=== PATIENT | male | born 1960 | race Caucasian/White ===

== ENCOUNTER 2020-05-12 18:45 | Emergency (ER) | payer BC, SELFPAY ==
[2020-05-12 18:46] VITALS: BP 139/84; PULSE 97; RESP 18; TEMP 36.8; O2SAT 99; BMI 18.8
--- NOTE | 2020-05-12 18:56 | ECG_ITS ---
APPROVED REPORT Exam: Resting ECG HR:101 bpm ECG Measurements Heart Rate 101 AXES PA 132 P 83 QRSd 80 QRS 33 QT 334 T 78 QTc 433 Conclusion Sinus tachycardia Otherwise normal ECG Electronically signed by : Rk Cavazos, 05/14/2020 19:59:23
--- NOTE | 2020-05-12 19:00 | XR_ITS ---
PROCEDURE: XR CHEST PORTABLE CLINICAL HISTORY: cough Cough COMPARISON: CR CXR CHEST(2 VIEWS-NOT PORTABLE) from 02/21/2015 FINDINGS: The cardiomediastinal silhouette and pulmonary vascularity are within normal limits. Nodular density is present in the left midlung laterally and could be due to nipple shadow. The remaining lungs are clear. No acute bony abnormalities. IMPRESSION: Nodular opacity left midlung laterally possibly due to nipple shadow and could be confirmed with follow-up with nipple otherwise negative, no acute finding. Dictated by: Al Martinez MD 05/13/2020 05:59 Al Martinez MD in [place] 05/13/2020 05:59
--- NOTE | 2020-05-12 19:07 | HMH.EDSYNC ---
ED Disposition Clinical Impression: Vasovagal syncope Disposition: Home, Self-Care Condition on Discharge: Good Instructions: DI for Syncope in Adults (Fainting) Referrals: Hans Abraham MD [Primary Care Provider] - - Critical Care Critical Care Time: No Attestation: On 05/12/20, the high probability of a clinically significant, sudden or life threatening deterioration of the following system(s) required my full and direct attention, intervention and personal management. The time I documented below is in addition to time spent performing reported procedures but includes the following listed in this critical care notation. Medical Decision Making - Medical Records Medical records reviewed: Yes: I reviewed the patient's medical records. - Jaya Inquiry Pt receiving controlled substance: No Vital Signs: 05/12/20 18:46 Temperature 98.3 F Temperature Source Oral Pulse Rate [Left Radial] 97 H Respiratory Rate 18 Blood Pressure [Right Arm] 139/84 Blood Pressure Mean [Right Arm] 102 Blood Pressure Source [Right Arm] Automatic Cuff Blood Pressure Position [Right Arm] Sitting 02 Sat by Pulse Oximetry 99 Oxygen Delivery Method Room Air - Lab Data Lab Results 05/12/20 18:58: WBC 12.1 H, RBC 5.17, Hgb 15.9, Hct 46.5, MCV 90.0, MCH 30.7, MCHC 34.1, RDW 13.4, Plt Count 263, MPV 8.2, Neut % (Auto) 85.1 H, Lymph % (Auto) 11.1, Meriwether % (Auto) 3.2, Eos % (Auto) 0.3, Baso % (Auto) 0.3, Neut # (Auto) 10.3 H, Lymph # (Auto) 1.3, Meriwether # (Auto) 0.4, Eos # (Auto) 0.0, Baso # (Auto) 0.0 05/12/20 18:58: Sodium 141, Potassium 3.4 L, Chloride 100, Carbon Dioxide 30, Anion Gap 14.4, BUN 14, Creatinine 0.90, Estimated Creat Clear 70, Estimated GFR 87, Est GFR ( Amer) 105, Glucose 123 H, Calcium 9.6, Total Bilirubin 1.2, AST 32, ALT 22, Alkaline Phosphatase 127 H, Troponin I < 0.01, Total Protein 9.3 H, Albumin 4.9, Globulin 4.4 H, Albumin/Globulin Ratio 1.1, TSH 3.01 Result diagrams: 05/12/20 18:58 05/12/20 18:58 Orders (Tests/Meds): ED MEDICATIONS Generic Name Dose Route Start Last Admin Trade Name Freq PRN Reason Stop Dose Admin Sodium Chloride 1,000 mls @ 999 mls/hr 05/12/20 19:00 05/12/20 19:09 Sod Chlor 0.9% 1000ml Bag IV 05/12/20 20:00 999 mls/hr .Q1H1M ERICKSON Administration Discontinued Medications Generic Name Dose Route Start Last Admin Trade Name Freq PRN Reason Stop Dose Admin Potassium Chloride 20 meq 05/12/20 19:35 05/12/20 19:51 Potassium Chloride 20meq Tab PO 05/12/20 19:36 20 meq ONCE ONE Administration ORDERS Category Date Time Status XR chest portable Stat Exams 05/12/20 19:00 Taken Complete Blood Count Auto Diff Stat Lab 05/12/20 18:58 Results Troponin I Q3H Lab 05/12/20 22:00 Ordered Troponin I Q3H Lab 05/13/20 01:00 Ordered - ECG Data Tracing #1 tachycardic rate of 101 bpm. Normal WI interval of 132 ms. Normal QTC. Sinus tachycardia with no specific ST changes. ECG initial impression date: 05/12/20 ECG initial impression time: 18:57 - Reevaluation(s) Time: 20:01 Reevaluation #1: On reevaluation patient is feeling better. Hemodynamically stable. Repeat neurologic exam is normal. Negative troponin. Patient is to follow-up with PCP in 48 hours. Given strict return precautions. Verbalized understanding. Medical Decision Narrative: Is a 59-year-old male presented to the emergency department with a syncopal episode. The patient has normal neurologic exam at this time. There is no evidence of seizure. Work-up will be initiated. Syncope HPI - General Chief Complaint: Syncope Stated Complaint: DIZZY, PASS OUT Time Seen by Provider: 05/12/20 18:50 Mode of Arrival: Wheelchair Limitations: No Limitations Description of Symptoms (Recalled from ER Triage Doc. by RN): Per brother pt was standing in the doorway when he passed out for about 30 secs. Pt states that he was feeling lightheaded before he passed out. - History of Prese
[2020-05-12 19:09] LABS: Basophils % 0.3 % (0.1-2.0); Eosinophils % 0.3 % (0.1-12.0); Hematocrit 46.5 % (42.0-52.0); Hemoglobin 15.9 g/dL (14.1-18.0); Lymphocytes # 1.3 K/mm3 (0.7-4.5); Lymphocytes % 11.1 % (10-50); Mean Corpuscular HGB Conc 34.1 g/dL (31.8-35.4); Mean Corpuscular Hemoglobin 30.7 pg (27.0-31.2); Mean Platelet Volume 8.2 fl (7.4-10.4); Monocytes # 0.4 K/mm3 (0.1-1.0); Monocytes % 3.2 % (1.7-9.3); Neutrophils # 10.3 K/mm3 (1.8-7.8); Neutrophils % 85.1 % (37.0-80.0); Platelet Count 263 K/mm3 (142-424); Red Blood Count 5.17 M/mm3 (4.60-6.20); Red Cell Distribution Width 13.4 % (11.5-17.5); White Blood Count 12.1 K/mm3 (4.8-10.8)
[2020-05-12 19:12] LABS: MANUAL DIFFERENTIAL MANUAL DIFFERENTIAL (MANUAL DIFF)
[2020-05-12 19:16] LABS: Chloride 100 mmol/L (98-107); Potassium 3.4 mmoL/L (3.5-5.1); Sodium 141 mmol/L (136-145)
--- NOTE | 2020-05-12 19:16 | PC.NURSE ---
received report from presley ramirez. discussed possibility of performing a head cta/ct without with md. no new orders at this time.
[2020-05-12 19:19] LABS: Alanine Aminotransferase 22 U/L (12-78); Albumin Level 4.9 g/dl (3.5-5.0); Albumin/Globulin Ratio 1.1 (1.1-1.8); Alkaline Phosphatase 127 U/L (38-126); Anion Gap 14.4 mEq/L (5-15); Aspartate Amino Transferase 32 U/L (17-59); Bilirubin,Total 1.2 mg/dl (0.2-1.3); Blood Urea Nitrogen 14 mg/dl (9-20); Carbon Dioxide 30 mmol/L (22.0-30.0); Creatinine Clearance Estimated 70 mL/min (50-200); Estimated Glomerular Filt Rate 87 ml/min (>60); GFR (African American) 105 ML/MIN (>60); Globulin 4.4 g/dL (1.3-3.2); Total Protein,Serum 9.3 g/dl (6.3-8.2)
[2020-05-12 19:20] LABS: Calcium 9.6 mg/dl (8.4-10.2); Glucose 123 mg/dl (74-100)
[2020-05-12 19:44] LABS: Troponin I < 0.01 ng/ml (0.00-0.034)
[2020-05-12 19:52] LABS: Thyroid Stimulating Hormone 3.01 uIU/mL (0.465-4.68)
[2020-05-12 20:05] VITALS: BP 147/98; PULSE 82; RESP 19; TEMP 36.1; O2SAT 98
[2020-05-12 20:09] LABS: Lymphocytes % 10 % (10-50); Monocytes % 6 % (2-9); Neutrophils % 84 % (42-76); Platelet Estimate Normal; RBC Morphology Normal; Total Cells Counted 100
== END 2020-05-12 20:36 | disposition home or self-care (01) ==
PROVIDERS: Emergency Provider Emergency Medicine; PCP Emergency Medicine
DX: R55 Syncope and collapse (principal); K21.9 Gastro-esophageal reflux disease without esophagitis; F17.290 Nicotine dependence, other tobacco product, uncomplicated; Z88.0 Allergy status to penicillin; Z88.5 Allergy status to narcotic agent
CPT/HCPCS: 71045; 80053; 84443; 84484; 85007; 85025; 93005; 99282

== ENCOUNTER → 2020-06-07 06:43 | Outpatient (CLI) | payer BC, SELFPAY ==
--- NOTE | 2020-06-07 | CA_ITS ---
APPROVED REPORT Exam: Exercise Treadmill Technologist: Mariela Riggins Ht: 5 ft 7 in Wt: 125 lbs BSA: 1.66 m2 HR: 70 bpm BP: 141/93 mmHg Indications: Chest pain Stress Test Details Test: Esequiel HR Resting HR: 112 bpm Max Heart Rate (APMHR): 163 bpm Max HR Achieved: 173 bpm Target HR (85% APMHR): 138 bpm % of APMHR: 106 Recovery HR: 104 bpm BP Resting BP: 141/93 mmHg Max BP: 170/94 mmHg Recovery BP: 132.0/90.0 mmHg ECG Resting ECG: Normal sinus rhythm Clinical Exercise duration: 09:00 min Highest Stage Achieved: Exercise capacity: 10.1 METs Stress ECG Conclusion Patient exercised 9:00 on Esequiel Protocol. Test stopped due to shortness of air, fatigue. Symptoms: No chest pain. Arrhythmias/Ectopy: None ST-T Changes: Normal ST response to exercise. Conclusion: Normal GXT. Myoview images reported separately. Test Summary Stage 3 01:00 14.0 3.4 142 . . . . REST . . . . . . . Standing REST 02:40 0.0 0.0 112 . 141/ 93 . . Stage 1 01:00 10.0 1.7 136 . . . . Stage 1 02:00 10.0 1.7 134 . . . . Stage 1 03:00 10.0 1.7 140 . 152/ 90 . . Stage 2 01:00 12.0 2.5 152 . . . . Stage 2 02:00 12.0 2.5 155 . . . . Stage 2 03:00 12.0 2.5 155 . 170/ 94 . . Stage 3 01:00 14.0 3.4 142 . . . . Stage 3 . . . . . . . Myoview Injected Stage 3 02:00 14.0 3.4 169 . . . . Stage 3 03:00 14.0 3.4 172 . . . Stop exercise at 09:00 RECOVERY 01:00 0.0 0.0 152 . . . . RECOVERY 02:00 0.0 0.0 139 . 156/ 96 . . RECOVERY 03:00 0.0 0.0 128 . 155/ 97 . . RECOVERY 04:00 0.0 0.0 125 . 138/ 93 . . RECOVERY 05:00 0.0 0.0 123 . 132/ 90 . . RECOVERY 06:00 0.0 0.0 129 . 132/ 90 . . RECOVERY 07:00 0.0 0.0 126 . 132/ 90 . . RECOVERY 07:50 0.0 0.0 137 . 132/ 90 . . Electronically signed by : Marcelino Hawk, 06/07/2020 18:32:19
--- NOTE | 2020-06-07 06:44 | CA_ITS ---
APPROVED REPORT Education Courses Sales Representative: Corinna Lane RVT Laterality: Bilateral Study Quality: Excellent Indications: bruit,syncope Doppler Spectral Velocity Analysis ECA (R) 82.30/16.00 cm/s ECA (L) 98.40/13.90 cm/s dICA (R) 81.30/26.70 cm/s dICA (L) 70.60/26.70 cm/s Ruy (R) 74.90/27.80 cm/s Ruy (L) 79.10/29.90 cm/s pICA (R) 63.10/18.20 cm/s pICA (L) 49.20/21.40 cm/s dCCA (R) 78.10/19.20 cm/s dCCA (L) 79.10/20.30 cm/s pCCA (R) 89.80/20.30 cm/s pCCA (L) 105.90/22.50 cm/s Vert (R) 39.60/10.70 cm/s Vert (L) 31.40/12.00 cm/s ICA/CCA 1.04 ICA/CCA 1.00 Findings Study suggests no evidence of stenosis of the bilateral internal cartoid arteries. Antegrade flow seen bilateral vertebral arteries. Conclusion Study suggests no evidence of stenosis of the bilateral internal cartoid arteries. Antegrade flow seen bilateral vertebral arteries. Electronically signed by : Jack Mace MD 06/08/2020 09:00:48
--- NOTE | 2020-06-07 06:44 | NM_ITS ---
APPROVED REPORT Exam: Nuclear Stress Test Indication: C.P., SYNCOPE Patient Location: Outpatient Stress Tech: Sri Treadwell [place] Tech:Sudha Godniez, ARRT, RT (R)(N) Ht: 5 ft 7 in Wt: 125 lbs HR: 70 bpm BP: 141/93 mmHg BSA: 1.66 m2 BMI: 19.5 History: C.P., SYNCOPE Procedure: Patient exercised on Esequiel protocol 9:00 minutes and sec, resting heart rate 70 bpm, resting blood pressure 141/93 mmHg, with exercise maximum heart rate achived was 173 bpm which is 106 % of the maximum predicted heart rate and blood pressure was 170/94 mmHg. Patient denied any complaint of chest pain. Patient has Good exercise capacity, achieved 10.1 METs of workload on treadmill, the blood pressure response to exercise was Adequate. Electrocardiogram Resting electrocardiogram showed sinus tachycardia, with exercise there is less than 1.[address] segment depression noted from the baseline EKG. The EKG portion of the exercise Myoview is negative for ischemia. Cardiac Stress and Resting SPECT Images: Cardiac Stress and Resting SPECT images were obtained using technetium 99m Myoview 32.0 mCi stress and 10.47 mCi at rest. Gated SPECT for analysis of segmental wall motion and calculation of the ejection fraction also done. Cardiac stress and resting SPECT images show uniform myocardial activity without segmental perfusion abnormality, computer derived ejection fraction is 48% with no regional wall motion abnormality, right ventricle is normal size and contractility. Conclusion: 1. The EKG portion of the exercise Myoview is negative for ischemia, patient has good exercise capacity achieved 10.1 mets of workload on treadmill, the blood pressure response to exercise was adequate, there was no exercise-induced chest discomfort. 2. No scintigraphic evidence of reversible ischemia seen at this level of exercise, computer derived ejection fraction is 48% with no regional wall motion abnormality, right ventricle is normal size and contractility. 3. Normal exercise Myoview study. Electronically signed by : Marcelino Hawk, 06/07/2020 18:39:39
--- NOTE | 2020-06-07 08:57 | HMH.ITSHM ---
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 []AC[employer] REFL[employer] MED
== END ==
PROVIDERS: PCP Emergency Medicine; Visit Provider Emergency Medicine
DX: R07.9 Chest pain, unspecified (principal); R09.89 Other specified symptoms and signs involving the circulatory and respiratory systems
CPT/HCPCS: 78452; 93017; 93880; A9502

== ENCOUNTER → 2021-03-21 08:58 | Outpatient (CLI) | payer BC, SELFPAY ==
--- NOTE | 2021-03-21 09:03 | XR_ITS ---
PROCEDURE: XR SHOULDER LT MIN 2V CLINICAL INDICATION: pain COMPARISON: No exams were available for comparison FINDINGS: No fracture or dislocation. No lytic or blastic change. There is normal mineralization. The joint spaces are well-preserved. No significant degenerative/arthritic changes. No erosive changes evident. Other findings:None. IMPRESSION: No acute findings. Dictated by: Al Martinez MD 03/21/2021 18:16 Al Martinez MD in [place] 03/21/2021 18:16
== END ==
PROVIDERS: PCP Emergency Medicine; Visit Provider Family Medicine
DX: M25.512 Pain in left shoulder (principal)
CPT/HCPCS: 73030

== ENCOUNTER → 2021-05-16 07:32 | Outpatient (CLI) | payer MEDICARE, BC, SELFPAY ==
--- NOTE | 2021-05-16 07:32 | MR_ITS ---
PROCEDURE: MR CERVICAL SPINE WO CON CLINICAL INDICATION: radicular pain LUE COMPARISON: No exams were available for comparison TECHNIQUE: Standard multiplanar multiecho sequences are performed without contrast. 3-D MIP and myelographic images are also rendered and reviewed FINDINGS: There is normal alignment. There is prominent cisterna magna as a normal variant in the skull base posteriorly. There is straightening of the upper cervical lordosis. C2-C3: Unremarkable. C3-C4: There is uncovertebral hypertrophy on the right with disc osteophyte complex at the uncovertebral region causing right lateral recess narrowing and moderate right foraminal narrowing. There is narrowing of the canal at this level at 10 mm. No cord impingement. C4-C5: Bilateral uncovertebral hypertrophy with moderate bilateral foraminal narrowing with narrowing of the canal at 11 mm. No cord impingement. C5-C6: Degenerative disc disease with bulging disc with narrowing of the canal at 9 mm. There is moderate to severe right foraminal narrowing and mild to moderate left foraminal narrowing. The bulging disc does abut the anterior aspect of the cord without significant compression. There is moderate left lateral recess narrowing and mild right lateral recess narrowing.. There is canal stenosis at this level at 9 mm. C6-C7: Unremarkable. C7-T1: Unremarkable. No extruded herniated disc. IMPRESSION: Multilevel cervical spondylosis with lateral recess and foraminal narrowing and canal stenosis. Please see above for detailed description at each level. Straightening of the cervical lordosis which may be due to patient positioning or muscle spasm. No extruded herniated disc apparent. Dictated by: Al Martinez MD 05/17/2021 08:35 Al Martinez MD in [place] 05/17/2021 08:35
== END ==
PROVIDERS: PCP Family Medicine; Visit Provider Family Medicine
DX: M54.2 Cervicalgia (principal); M79.602 Pain in left arm; R20.0 Anesthesia of skin; R20.2 Paresthesia of skin
CPT/HCPCS: 72141; 76376

== ENCOUNTER 2023-10-06 18:00 | Outpatient (CLI) | payer MEDICARE, SELFPAY ==
[2023-10-06 18:34] LABS: Basophils % 0.5 % (0.1-2.0); Eosinophils # 0.1 K/mm3 (0.0-0.4); Eosinophils % 0.6 % (0.1-12.0); Hematocrit 42.2 % (42.0-52.0); Hemoglobin 14.4 g/dL (14.1-18.0); Lymphocytes # 1.3 K/mm3 (0.7-4.5); Lymphocytes % 14.7 % (10-50); Mean Corpuscular HGB Conc 34.1 g/dL (31.8-35.4); Mean Corpuscular Hemoglobin 31.4 pg (27.0-31.2); Mean Corpuscular Volume 92.1 fl (80-94); Mean Platelet Volume 9.3 fl (7.4-10.4); Monocytes # 0.3 K/mm3 (0.1-1.0); Monocytes % 3.7 % (1.7-9.3); Neutrophils # 7.1 K/mm3 (1.8-7.8); Neutrophils % 80.5 % (37.0-80.0); Platelet Count 249 K/mm3 (142-424); Red Blood Count 4.58 M/mm3 (4.60-6.20); Red Cell Distribution Width 13.9 % (11.5-17.5); White Blood Count 8.9 K/mm3 (4.8-10.8)
[2023-10-06 18:56] LABS: Alanine Aminotransferase 18 U/L (12-78); Albumin Level 4.6 g/dl (3.5-5.0); Albumin/Globulin Ratio 1.6 (1.1-1.8); Alkaline Phosphatase 89 U/L (38-126); Anion Gap 12.8 mEq/L (5-15); Aspartate Amino Transferase 29 U/L (17-59); Bilirubin,Total 1.2 mg/dl (0.2-1.3); Blood Urea Nitrogen 13 mg/dl (9-20); Calcium 9.9 mg/dl (8.4-10.2); Carbon Dioxide 26 mmol/L (22.0-30.0); Chloride 107 mmol/L (98-107); Chol/HDL Ratio 3.6 (1-3.5); Cholesterol 195 mg/dl (140-200); Estimated Glomerular Filt Rate 76 ml/min (>60); GFR (African American) 92 ML/MIN (>60); Globulin 2.9 g/dL (1.3-3.2); Glucose 99 mg/dl (74-100); HDL Cholesterol 54 mg/dl (40-60); Potassium 3.8 mmoL/L (3.5-5.1); Sodium 142 mmol/L (136-145); Total Protein,Serum 7.5 g/dl (6.3-8.2); Triglycerides 82 mg/dl (30-150); VLDL Cholesterol 16 mg/dL (0-40)
[2023-10-06 19:09] LABS: Direct LDL Cholesterol 106.57 mg/dL (100-129)
[2023-10-06 19:13] LABS: 25-OH Vitamin D, Total 36.8 ng/mL (30-100)
[2023-10-06 19:17] LABS: Hemoglobin A1C 5.1 % (4.0-6.0)
[2023-10-06 19:28] LABS: Prostate Specific Ag Screen 1.7 ng/ml (0.0-4.0); Thyroid Stimulating Hormone 1.95 uIU/mL (0.465-4.68)
== END 2023-10-06 23:59 | disposition home or self-care (01) ==
LOC: LAB.DROPOF 10-07 08:29
PROVIDERS: PCP Family Medicine; Visit Provider Family Medicine
DX: R42 Dizziness and giddiness (principal); E78.5 Hyperlipidemia, unspecified; R73.03 Prediabetes; E55.9 Vitamin D deficiency, unspecified; R53.83 Other fatigue; Z12.5 Encounter for screening for malignant neoplasm of prostate
CPT/HCPCS: 80053; 80061; 82306; 83036; 84443; 85025; G0103